=== PATIENT | female | born 1990 | race Caucasian/White ===

== ENCOUNTER 2023-11-06 08:58 | Emergency (ER) | payer BC, MEDICAID ==
[~2023-11-06] VITALS: Ht 180.3 cm; Wt 82.5 kg
[2023-11-06 09:16] VITALS: BP 140/94; PULSE 83; RESP 18; TEMP 98; O2SAT 96
[2023-11-06] MEDS ORDERED: CYCL-1 PO (09:46)
[2023-11-07] MEDS ORDERED: CYCL-1 PO (15:05)
== END 2023-11-06 10:21 | disposition home or self-care (01) ==
LOC: ER 08:59
DX: F19.10 Other psychoactive substance abuse, uncomplicated (principal); Z79.899 Other long term (current) drug therapy
CPT/HCPCS: 99283

== ENCOUNTER 2023-11-28 12:07 | Emergency (ER) | payer BC, MEDICAID ==
[~2023-11-28] VITALS: Ht 180.3 cm; Wt 79.5 kg
[~2023-11-28 12:07] MED LIST: CYCL-1 PO
[2023-11-28 12:34] VITALS: BP 144/87; PULSE 91; O2SAT 97
[2023-11-28 13:57] VITALS: RESP 16
[2023-11-28] MEDS: ketorolac trometh 15mg/ml vial 15 MG/ML ML IM ONE (13:57)
[2023-11-28] MEDS ORDERED: DIAZ5TAB22 PO (14:00)
[2023-11-28 14:11] VITALS: TEMP 97.7
== END 2023-11-28 14:13 | disposition home or self-care (01) ==
LOC: ER 12:07
DX: M54.16 Radiculopathy, lumbar region (principal); Z88.2 Allergy status to sulfonamides; Z79.899 Other long term (current) drug therapy
CPT/HCPCS: 96372; 99283; J1885

== ENCOUNTER 2024-01-08 16:56 | Emergency (ER) | payer BC, MEDICAID ==
[~2024-01-08] VITALS: Ht 177.8 cm; Wt 85.2 kg
[2024-01-08 17:09] VITALS: TEMP 97.3
[2024-01-08] MEDS: ketorolac trometh 15mg/ml vial 15 MG/ML ML IV ONE (20:54)
[2024-01-08] MEDS: dexamethasone sod phosphate 10mg/ml inj IV STA (20:54)
[2024-01-08] MEDS: diazepam 5mg tablet PO ONE (20:54)
[2024-01-08 20:56] LABS: BASOPHILS # (AUTO) 0.1 X10'3 (0-0.2); BASOPHILS % (AUTO) 0.8 % (0-1); EOSINOPHILS # (AUTO) 0.4 X10'3 (0-0.9); EOSINOPHILS % (AUTO) 4.5 % (0-6); HEMATOCRIT 36.5 % (35.0-45.0); HEMOGLOBIN 12.5 g/dl (12.0-16.0); LYMPHOCYTES # (AUTO) 3.5 X10'3 (1.1-4.8); LYMPHOCYTES % (AUTO) 41.8 % (21-51); MEAN CORPUSCULAR HEMOGLOBIN 28.8 PG (27.0-31.0); MEAN CORPUSCULAR HGB CONC 34.1 g/dL (33.0-36.5); MEAN CORPUSCULAR VOLUME 84.4 FL (78-98); MEAN PLATELET VOLUME 7.5 FL (7.4-10.4); MONOCYTES # (AUTO) 0.5 X10'3 (0-0.9); MONOCYTES % (AUTO) 6.4 % (2-12); NEUTROPHILS # (AUTO) 3.9 X10'3 (1.8-7.7); NEUTROPHILS % (AUTO) 46.5 % (42-75); PLATELET COUNT 319 X10'3 (140-440); RED BLOOD COUNT 4.33 X10'6 (4.20-5.60); RED CELL DISTRIBUTION WIDTH 13.3 % (11.5-14.5); WHITE BLOOD COUNT 8.4 X10'3 (4.5-11.0)
[2024-01-08 21:05] LABS: ALBUMIN 3.7 G/DL (3.4-5.0); ANION GAP 8 (8-16); BLOOD UREA NITROGEN 15 MG/DL (7-18); CALCIUM 8.4 MG/DL (8.5-10.1); CHLORIDE 105 MMOL/L (99-107); CREATININE 0.79 MG/DL (0.40-0.90); GLUCOSE 100 MG/DL (70-104); POTASSIUM 3.7 MMOL/L (3.5-5.1); SODIUM 139 MMOL/L (135-145); TOTAL CARBON DIOXIDE 26.2 MMOL/L (24-32); eCRCL 110 ML/MIN; eGFR 84 ML/MIN
[2024-01-08 21:29] LABS: BILIRUBIN,URINE NEGATIVE (Neg); CLARITY,URINE CLEAR (Clear); COLOR,URINE YELLOW (Yellow); GLUCOSE, URINE NEGATIVE (Neg); KETONES,URINE NEGATIVE (Neg); LEUKOCYTE ESTERASE ,URINE NEGATIVE (Neg); NITRITES, URINE NEGATIVE (Neg); OCCULT BLOOD,URINE SMALL (Neg); PROTEIN,URINE NEGATIVE (Neg); URINE HCG NEGATIVE (NEG); UROBILINOGEN,URINE 0.2 E.U/dL (0.2-1.0)
[2024-01-08 21:30] LABS: UA COLLECTION TYPE CLN CATCH MIDSTREAM
[2024-01-08 21:37] LABS: WBC,URINE 0-4 /HPF (0-4)
[2024-01-08 21:38] LABS: BACTERIA,URINE NONE SEEN /HPF (Neg); MUCUS STRANDS NONE SEEN /LPF (Neg); SQUAMOUS EPITHELIAL CELL,UR NONE SEEN /LPF (FEW)
[2024-01-08] MEDS: traMADol 50MG tablet PO ONE (23:05)
[2024-01-09] MEDS: diazepam 5mg tablet PO ONE (07:38)
[2024-01-09 11:48] VITALS: BP 137/71; PULSE 84; RESP 16; O2SAT 98
[2024-01-09] MEDS ORDERED: OXYC-138 PO (12:39)
== END 2024-01-09 13:16 | disposition home or self-care (01) ==
LOC: ER 16:57
DX: M54.17 Radiculopathy, lumbosacral region (principal); R20.2 Paresthesia of skin; Z88.2 Allergy status to sulfonamides; Z79.899 Other long term (current) drug therapy; Z88.5 Allergy status to narcotic agent
CPT/HCPCS: 36415; 72148; 72195; 80048; 81001; 81025; 85025; 96374; 96375; 99285; J1100; J1885